=== PATIENT | female | born 1995 | race African-American/Black ===

== ENCOUNTER 2017-01-06 17:19 | Emergency (ER) | payer OTHER ==
[~2017-01-06] VITALS: Ht 172.7 cm; Wt 77.0 kg
[~2017-01-06 17:19] MED LIST: CYCL-36 PO; NAPR500 PO; Z.0.BCPILL PO
[2017-01-06 17:20] VITALS: BP 128/73; PULSE 126; RESP 17; TEMP 99.3; O2SAT 99
== END 2017-01-06 18:34 | disposition left against medical advice (07) ==
LOC: NED 17:19
DX: Z53.21 Procedure and treatment not carried out due to patient leaving prior to being seen by health care provider (principal)
CPT/HCPCS: 99281